=== PATIENT | male | born 1985 | race Two or more races ===

== ENCOUNTER 2022-08-29 10:53 | Emergency (ER) | payer OTHER ==
[2022-08-29 11:00] VITALS: BP 128/90; PULSE 80; RESP 16; TEMP 98.8; BMI 25.0
== END 2022-08-29 12:30 | disposition home or self-care (01) ==
LOC: FER 10:53
DX: S62.340A Nondisplaced fracture of base of second metacarpal bone, right hand, initial encounter for closed fracture (principal); Y93.71 Activity, boxing
CPT/HCPCS: 73130-TC-RT-FY; 99283-25

== ENCOUNTER 2023-09-14 12:40 | Emergency (ER) | payer OTHER ==
[2023-09-14 12:55] VITALS: BP 129/86; PULSE 88; RESP 18; TEMP 97.5; BMI 24.2
[2023-09-14] MEDS ORDERED: ACETAMINOPHEN 1000 MG/100 ML BAG IVPB ONE (13:19)
[2023-09-14] MEDS ORDERED: DEXAMETHASONE SOD PHOSPHATE 10 MG/1 ML VIAL IVPUSH ONE (13:19)
[2023-09-14] MEDS ORDERED: DEXAMETHASONE SOD PHOSPHATE 10 MG/1 ML VIAL ONE (13:25)
[2023-09-14] MEDS ORDERED: ACETAMINOPHEN INJECTION 100 ML IVPB ONE (13:25)
[2023-09-14 14:16] LABS: BASO % 0.8 % (0-2.0); EOS % 1.8 % (0-4.5); HEMATOCRIT 47.3 % (35.4-49); HEMOGLOBIN 16.2 GM/dL (11.7-16.9); LYMPH % 33.3 % (8-40); MCHC 34.4 g/dl (32.0-35.9); MEAN CELL VOLUME 87.2 fl (80-96); MEAN PLT VOLUME 8.1 fl (7.5-11.1); MONO % 6.9 % (3.8-10.2); NEUT % 57.2 % (42.8-82.8); PLATELET COUNT 228 10^3/uL (134-434); RBC 5.42 M/mm3 (4.00-5.60); RDW 14.1 % (11.9-15.9); WHITE BLOOD COUNT 5.1 K/mm3 (4.0-10.0)
[2023-09-14 14:26] LABS: POTASSIUM 3.9 mmol/L (3.5-5.1)
[2023-09-14 14:27] LABS: CALCIUM 8.5 mg/dL (8.5-10.1)
[2023-09-14 14:31] LABS: CREATININE 1.1 mg/dL (0.55-1.3)
== END 2023-09-14 16:17 | disposition home or self-care (01) ==
LOC: JER 12:40
PROC: 3E033GC Introduction of Other Therapeutic Substance into Peripheral Vein, Percutaneous Approach (ICD-10-PCS; principal; 2023-09-14)
PROC: 3E033NZ Introduction of Analgesics, Hypnotics, Sedatives into Peripheral Vein, Percutaneous Approach (ICD-10-PCS; 2023-09-14)
DX: J02.9 Acute pharyngitis, unspecified (principal); Z20.822 Contact with and (suspected) exposure to COVID-19
CPT/HCPCS: 36415; 70491-TC; 80048; 85025; 87651; 99285-25; J1100; Q9967